=== PATIENT | male | born 1950 | race Asian ===

== ENCOUNTER 2017-07-01 10:22 | Emergency (ER) | payer OTHER ==
[~2017-07-01] VITALS: Ht 167.6 cm; Wt 77.3 kg
[2017-07-01 10:27] VITALS: Ht 167.6 cm; Wt 77.3 kg
[2017-07-01 11:40] VITALS: BP 123/74
== END 2017-07-01 11:40 | disposition home or self-care (01) ==
LOC: ED 10:22
DX: J11.1 Influenza due to unidentified influenza virus with other respiratory manifestations (principal); J98.01 Acute bronchospasm; I10 Essential (primary) hypertension
CPT/HCPCS: J1100; J7620; Q0092

== ENCOUNTER 2018-07-19 11:04 | Emergency (ER) | payer OTHER ==
[~2018-07-19] VITALS: Ht 167.6 cm; Wt 76.2 kg
[2018-07-19 11:10] VITALS: Ht 167.6 cm; Wt 76.2 kg
[2018-07-19 12:45] VITALS: BP 140/72
== END 2018-07-19 12:45 | disposition home or self-care (01) ==
LOC: ED 11:04
DX: J98.01 Acute bronchospasm (principal); I10 Essential (primary) hypertension; Z88.5 Allergy status to narcotic agent
CPT/HCPCS: 87804; J2930; J7613; J7644

== ENCOUNTER 2018-12-05 18:30 | Emergency (ER) | payer OTHER ==
[~2018-12-05] VITALS: Ht 167.6 cm; Wt 77.1 kg
[2018-12-05 19:06] VITALS: Ht 167.6 cm; Wt 77.1 kg
[2018-12-05 21:06] VITALS: BP 153/77
== END 2018-12-05 21:06 | disposition home or self-care (01) ==
LOC: ED 18:30
DX: J98.01 Acute bronchospasm (principal); I10 Essential (primary) hypertension; Z88.5 Allergy status to narcotic agent
CPT/HCPCS: J2930; J7613; J7644

== ENCOUNTER 2019-03-28 06:22 | Emergency (ER) | payer OTHER ==
[~2019-03-28] VITALS: Ht 167.6 cm; Wt 72.6 kg
[2019-03-28 06:57] LABS: microscopic required? NO
[2019-03-28 07:14] LABS: CALCIUM 8.3 mg/dL (8.5-10.1); CARBON DIOXIDE 33.2 mmol/L (21-32); CHLORIDE SERUM 104 mmol/L (98-107); CREATININE SERUM 1.2 mg/dL (0.7-1.3); GFR1 > 60 mL/min; GLUCOSE SERUM 100 mg/dL (74-106); POTASSIUM SERUM 4.3 mmol/L (3.5-5.1); SODIUM SERUM 142 mmol/L (136-145)
[2019-03-28 07:17] LABS: ALBUMIN 3.8 g/dL (3.4-5.0); ALKALINE PHOSPHATASE 77 U/L (46-116); ALT/SGPT 21 U/L (16-63); AST/SGOT 20 U/L (15-37); LIPASE 115 IU/L (73-393); TOTAL PROTEIN, SERUM 7.2 g/dL (6.4-8.2); TRIGLYCERIDES 124 mg/dL (<150)
[2019-03-28 07:23] LABS: CHOLESTEROL 121 mg/dL (<200); CHOLESTEROL/HDL RATIO 3.6; HDL CHOLESTEROL 34 mg/dL (40-60)
[2019-03-28 07:54] LABS: UA SPECIFIC GRAVITY 1.015 (1.005-1.035); urine erythrocyte NEGATIVE (NEGATIVE)
[2019-03-28 09:05] LABS: RED CELL DISTRIBUTION WIDTH 16.7 % (11.5-14.5)
[2019-03-28 10:11] VITALS: BP 116/96
[2019-03-28 10:12] LABS: PLATELET COUNT 172 x10^3mcL (130-400)
[2019-03-28 10:15] LABS: PATH REVIEW for HEMA NO
== END 2019-03-28 10:11 | disposition home or self-care (01) ==
LOC: ED 06:22
PROVIDERS: Emergency Medicine
DX: K29.70 Gastritis, unspecified, without bleeding (principal); I10 Essential (primary) hypertension; Z88.5 Allergy status to narcotic agent
CPT/HCPCS: 36415